=== PATIENT | male | born 1990 | race Two or more races ===

== ENCOUNTER 2017-05-06 04:18 | Emergency (ER) | payer SELFPAY ==
[~2017-05-06] VITALS: Ht 188 cm; Wt 68.6 kg
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
--- NOTE | 2017-05-06 04:25 | NUR ---
.IV ACCESS STARTED ON LAC #16G, SL
[2017-05-06] MEDS ORDERED: CEFAZOLIN 2 GM ONE (04:29)
[2017-05-06] MEDS ORDERED: MORPHINE SULFATE INJ 4 MG/ML DISP.SYRIN ONE ×2 (04:30→06:26)
[2017-05-06] MEDS ORDERED: MORPHINE SULFATE INJ 2 MG/ML DISP.SYRIN IV ONE ×2 (04:30→06:30)
[2017-05-06] MEDS ORDERED: IV NS 0.9% 500 ML IV ONE (04:30)
[2017-05-06] MEDS ORDERED: IV NS 0.9% 1,000 ML BAG IV ONE (04:30)
[2017-05-06] MEDS ORDERED: CEFAZOLIN 2 GM in IV D5W 100 ML IV ONE (04:30)
[2017-05-06] MEDS ORDERED: ONDANSETRON HCL/PF 4 MG/2 ML VIAL IVP ONE (04:30)
[2017-05-06] MEDS ORDERED: ONDANSETRON HCL/PF 4 MG/2 ML VIAL ONE (04:30)
[2017-05-06] MEDS ORDERED: IOHEXOL-350 100 ML VIAL IV ONE (04:30)
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
--- NOTE | 2017-05-06 05:00 | NUR ---
ALL ORDERED MEDS GIVEN
[2017-05-06 05:10] LABS: BASOPHILS % (AUTO) 0.3 % (0.0-2.0); EOSINOPHILS % (AUTO) 0.4 % (0.0-6.0); HEMATOCRIT 37 % (39-51); HEMOGLOBIN 12.4 g/dL (13.5-17.5); LYMPHOCYTES # (AUTO) 1.3 /CMM (0.8-4.8); MEAN CORPUSCULAR HEMOGLOBIN 30 PG (26.0-33.0); MEAN CORPUSCULAR HGB CONC 33 g/dl (31.0-36.0); MEAN CORPUSCULAR VOLUME 90 fL (80-96); MONOCYTES # (AUTO) 0.7 /CMM (0.1-1.30); MONOCYTES % (AUTO) 8.1 % (2.0-12.0); NEUTROPHILS # (AUTO) 6.2 /CMM (1.8-8.9); NEUTROPHILS % (AUTO) 75.2 % (43.0-81.0); PLATELET COUNT (AUTO) 165 /CMM (150-450); RDW COEFFICIENT OF VARIATION 14.5 (11.5-15.0); RED BLOOD CELL COUNT(AUTO) 4.14 MIL/uL (4.5-6.0); WHITE BLOOD COUNT (AUTO) 8.2 K/uL (4.3-11.0)
--- NOTE | 2017-05-06 05:22 | NUR ---
URINE SAMPLE COLLECTED
[2017-05-06 05:28] LABS: INR 0.99 (0.87-1.13); PROTHROMBIN TIME 10.3 SECS (9.5-12.7)
[2017-05-06 05:31] LABS: ALBUMIN 3.9 g/dL (3.4-5.0); BILIRUBIN,DIRECT 0.2 mg/dL (0.0-0.2); BILIRUBIN,TOTAL 1.1 mg/dL (0.2-1.0); CALCIUM, SERUM 8.9 mg/dL (8.5-10.1); CREATININE 0.9 mg/dL (0.6-1.3); POTASSIUM 3.9 mmol/L (3.5-5.1)
--- NOTE | 2017-05-06 05:45 | NUR ---
ALL ORDERED MEDS GIVEN
[2017-05-06 06:17] LABS: APPEARANCE,URINE CLEAR (CLEAR); BILIRUBIN,URINE NEGATIVE (NEGATIVE); BLOOD, URINE NEGATIVE Ery/uL (NEGATIVE); COLOR,URINE YELLOW (YELLOW); KETONES,URINE NEGATIVE (NEGATIVE); LEUKOCYTE ESTERASE ,URINE NEGATIVE (NEGATIVE); NITRITE, URINE NEGATIVE (NEGATIVE); PROTEIN,URINE NEGATIVE (NEGATIVE); UGLUCOSE NEGATIVE (NEGATIVE); UROBILINOGEN,URINE 0.2 EU/dL (0.2)
--- NOTE | 2017-05-06 06:31 | NUR ---
Pt C/O 02/28 PAIN. ADMINISTERED 4MG OF MORPHINE ON LAC#16G.
--- NOTE | 2017-05-06 06:45 | NUR ---
Patient discharged to home in stable condition. Written and verbal after care instructions given. Patient verbalizes understanding of instruction. Friend of pt came to bean picker pt. pt left on crutches. vs stable.
[2017-05-06 06:50] VITALS: BP 134/84
== END 2017-05-06 06:45 | disposition home or self-care (01) ==
LOC: ER 04:20
DX: S71.131A Puncture wound without foreign body, right thigh, initial encounter (principal); F17.200 Nicotine dependence, unspecified, uncomplicated; W34.09XA Accidental discharge from other specified firearms, initial encounter; Y93.01 Activity, walking, marching and hiking; Y92.413 State road as the place of occurrence of the external cause; Y99.8 Other external cause status
CPT/HCPCS: 36415; 75635; 80048; 80076; 81001; 85025; 85730; 86850; 93005; 96365; 96375; 96376; 99285; A4606; A6402; J0690 ×2; J2270 ×2; J2405; J7030; J7040; J7060 ×2; Q9967; Z7610; 81000-TC

== ENCOUNTER 2017-05-08 20:47 | Emergency (ER) | payer SELFPAY ==
[~2017-05-08] VITALS: Ht 188 cm; Wt 68.0 kg
[2017-05-08 20:47] VITALS: BP 123/87
== END 2017-05-08 23:15 | disposition home or self-care (01) ==
LOC: ER 20:49
DX: S71.101A Unspecified open wound, right thigh, initial encounter (principal); R20.2 Paresthesia of skin; M21.371 Foot drop, right foot; F17.200 Nicotine dependence, unspecified, uncomplicated; F12.10 Cannabis abuse, uncomplicated; W34.09XA Accidental discharge from other specified firearms, initial encounter; Y93.89 Activity, other specified; Y92.89 Other specified places as the place of occurrence of the external cause; Y99.8 Other external cause status
CPT/HCPCS: 29515; 99283; 99406; A4606; Z7610

== ENCOUNTER 2019-02-06 13:47 | Emergency (ER) | payer MEDICAID ==
[~2019-02-06] VITALS: Ht 188 cm; Wt 65.8 kg
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
[2019-02-06] MEDS ORDERED: LIDOCAINE 1%-EPI 1:100,000 20 ML VIAL ONE (16:22)
[2019-02-06] MEDS ORDERED: ACETAMINOPHEN ES 500 MG TABLET ONE (16:22)
--- NOTE | 2019-02-06 16:25 | NUR ---
JADE REBOLLAR AT BEDSIDE FOR EVAL
[2019-02-06] MEDS: LIDOCAINE 1%-EPI 1:100,000 20 ML VIAL TP ONE (16:29)
[2019-02-06] MEDS: ACETAMINOPHEN 325 MG TABLET PO ONE (16:29)
--- NOTE | 2019-02-06 16:33 | NUR ---
JADE REBOLLAR AT BEDSIDE FOR I&D
[2019-02-06] MEDS ORDERED: CEPHALEXIN MONOHYDRATE 500 MG CAPSULE PO ONE (16:56)
[2019-02-06] MEDS ORDERED: SULFAMETH/TRIMETH 800/160 MG 1 UDTAB TABLET ONE (16:57)
--- NOTE | 2019-02-06 17:00 | NUR ---
PATIENT PROVIDED W FOOD TRAY, TOLERATING PO WELL.
[2019-02-06] MEDS: CEPHALEXIN MONOHYDRATE 500 MG CAPSULE PO ONE (17:04)
[2019-02-06] MEDS: SULFAMETH/TRIMETH 800/160 MG 1 UDTAB TABLET PO ONE (17:04)
--- NOTE | 2019-02-06 17:16 | NUR ---
Patient given written and verbal discharge instructions. Patient verbalizes understanding of instructions. Patient is ambulatory with steady gait. Refuses offer of [facility] placement. Patient given list of available shelters in surrounding area. Patient discharge in proper clothing. nameband removed.
[2019-02-06 17:17] VITALS: BP 106/76
== END 2019-02-06 17:20 | disposition home or self-care (01) ==
LOC: ER 13:49
DX: L02.212 Cutaneous abscess of back [any part, except buttock and flank] (principal); F17.200 Nicotine dependence, unspecified, uncomplicated
CPT/HCPCS: 10060; 99284; A6403 ×2; A6407; J3490

== ENCOUNTER 2020-02-10 18:31 | Emergency (ER) | payer MEDICAID ==
[~2020-02-10] VITALS: Ht 182.9 cm; Wt 56.2 kg
--- NOTE | 2020-02-10 18:31 | NUR ---
PT BIB SELF C/O R SIDED ABDOMINAL PAIN, PT IS AAOX4, NOT IN RESPIRATORY DISTRESS, HOOKED TO DEATH CLEARANCE COORDINATOR, KEPT RESTED AND COMFORTABLE. WILL CONTINUE TO MONITOR.
--- NOTE | 2020-02-10 18:59 | NUR ---
URINE SPECIMEN COLLECTED AND SENT TO LAB.
--- NOTE | 2020-02-10 19:03 | NUR ---
REPORT GIVEN TO ELLEN NOLEN FOR [facility].
--- NOTE | 2020-02-10 19:19 | NUR ---
URINE SENT TO LAB, AWAITING PHLIBOTOMIST.
[2020-02-10 19:35] LABS: BASOPHILS % (AUTO) 0.4 % (0.0-2.0); EOSINOPHILS % (AUTO) 0.1 % (0.0-6.0); HEMATOCRIT 43 % (39-51); HEMOGLOBIN 14.1 g/dL (13.5-17.5); LYMPHOCYTES # (AUTO) 0.8 /CMM (0.8-4.8); LYMPHOCYTES % (AUTO) 9.1 % (20.0-44.0); MEAN CORPUSCULAR HGB CONC 33 g/dl (31.0-36.0); MEAN CORPUSCULAR VOLUME 93 fL (80-96); MONOCYTES # (AUTO) 0.5 /CMM (0.1-1.30); MONOCYTES % (AUTO) 6.2 % (2.0-12.0); NEUTROPHILS # (AUTO) 7.5 /CMM (1.8-8.9); NEUTROPHILS % (AUTO) 84.2 % (43.0-81.0); PLATELET COUNT (AUTO) 236 /CMM (150-450); RED BLOOD CELL COUNT(AUTO) 4.63 MIL/uL (4.5-6.0); WHITE BLOOD COUNT (AUTO) 8.8 K/uL (4.3-11.0)
[2020-02-10 19:45] LABS: POTASSIUM 3.6 mmol/L (3.5-5.1)
[2020-02-10 19:51] LABS: ALBUMIN 3.4 g/dL (3.4-5.0); BILIRUBIN,DIRECT 0.1 mg/dL (0.0-0.2); BILIRUBIN,TOTAL 0.4 mg/dL (0.2-1.0); TOTAL PROTEIN, SERUM 7.6 g/dL (6.4-8.2)
[2020-02-10 19:59] LABS: APPEARANCE,URINE Clear (CLEAR); BILIRUBIN,URINE SMALL (NEGATIVE); BLOOD, URINE Trace-intact Ery/uL (NEGATIVE); COLOR,URINE Dark (YELLOW); KETONES,URINE Trace (NEGATIVE); LEUKOCYTE ESTERASE ,URINE Moderate (NEGATIVE); NITRITE, URINE Negative (NEGATIVE); PROTEIN,URINE 30 mg/dl (NEGATIVE); UGLUCOSE Negative (NEGATIVE); UROBILINOGEN,URINE 0.2 EU/dL (0.2)
[2020-02-10 20:09] LABS: BACTERIA,URINE 1+ /HPF (None Seen); SQUAMOUS EPITHELIAL CELL,UR Few /HPF (None Seen); WBC,URINE 21-50 /HPF (0-3)
[2020-02-10] MEDS ORDERED: SULFAMETH/TRIMETH 800/160 MG 1 UDTAB TABLET ONE (21:28)
[2020-02-10] MEDS ORDERED: SULFAMETH/TRIMETH 800/160 MG 1 UDTAB TABLET PO ONE (21:30)
--- NOTE | 2020-02-10 21:31 | NUR ---
Patient discharged to home in stable condition. Written and verbal after care instructions given. Patient verbalizes understanding of instruction.
--- NOTE | 2020-02-10 21:35 | NUR ---
Patient discharged to home in stable condition. Written and verbal after care instructions given. Patient verbalizes understanding of instruction and RX. Pt ambulated with steady gait, vss.
[2020-02-10 21:36] VITALS: BP 132/76
== END 2020-02-10 21:37 | disposition home or self-care (01) ==
LOC: ER 18:39
DX: N30.90 Cystitis, unspecified without hematuria (principal); R00.0 Tachycardia, unspecified
CPT/HCPCS: 36415; 80048-TC; 80076-TC; 81000-TC; 83690-TC; 84484-TC; 85025-TC; 87086-TC

== ENCOUNTER 2020-07-09 19:11 | Emergency (ER) | payer MEDICAID ==
[~2020-07-09] VITALS: Ht 188 cm; Wt 74.8 kg
[2020-07-09 19:22] VITALS: BP 112/79
[2020-07-09] MEDS ORDERED: ACYC400T PO (19:40)
== END 2020-07-09 19:45 | disposition home or self-care (01) ==
LOC: ER 19:14
DX: A60.02 Herpesviral infection of other male genital organs (principal); F17.200 Nicotine dependence, unspecified, uncomplicated; Z79.899 Other long term (current) drug therapy

== ENCOUNTER 2020-08-28 19:09 | Emergency (ER) | payer MEDICAID ==
[~2020-08-28] VITALS: Ht 188 cm; Wt 72.6 kg
[~2020-08-28 19:09] MED LIST: ACYC400T PO
[2020-08-28 19:36] VITALS: BP 118/78
[2020-08-28] MEDS ORDERED: ACYC400T PO (19:48)
== END 2020-08-28 19:58 | disposition home or self-care (01) ==
LOC: ER 19:33
DX: B00.89 Other herpesviral infection (principal); J45.909 Unspecified asthma, uncomplicated; Z91.013 Allergy to seafood; Z79.899 Other long term (current) drug therapy

== ENCOUNTER → 2022-08-19 | Emergency (ER) | payer MEDICAID ==
[~2022-08-19] VITALS: Ht 188 cm; Wt 73.0 kg
[~2022-08-19] MED LIST changes: -ACYC400T PO; +ACYC400T19 PO; +HYDR453.3 TP; +PRED20TA PO
[2022-08-19 15:36] VITALS: BP 103/66
--- NOTE | 2022-08-19 16:17 | NUR ---
Patient discharged to home in stable condition. Written and verbal after care instructions given. Patient verbalizes understanding of instruction.
== END | disposition home or self-care (01) ==
LOC: ER 14:57
DX: R21 Rash and other nonspecific skin eruption (principal); F17.200 Nicotine dependence, unspecified, uncomplicated; Z79.899 Other long term (current) drug therapy; Z91.013 Allergy to seafood

== ENCOUNTER 2022-08-20 18:37 | Emergency (ER) | payer MEDICAID ==
[~2022-08-20] VITALS: Ht 188 cm; Wt 72.6 kg
[~2022-08-20 18:37] MED LIST changes: -PRED20TA PO
[2022-08-20 20:19] VITALS: BP 112/55
[2022-08-20] MEDS ORDERED: PRED20TA PO (20:34)
[2022-08-20] MEDS ORDERED: predniSONE 20 MG TABLET ONE (20:36)
--- NOTE | 2022-08-20 20:41 | NUR ---
Patient discharged to home in stable condition. Written and verbal after care instructions given. Patient verbalizes understanding of instruction.
[2022-08-20] MEDS ORDERED: predniSONE 20 MG TABLET PO ONE (21:00)
== END 2022-08-20 20:41 | disposition home or self-care (01) ==
LOC: ER 18:53
DX: R21 Rash and other nonspecific skin eruption (principal); F17.200 Nicotine dependence, unspecified, uncomplicated; Z91.013 Allergy to seafood; Z79.899 Other long term (current) drug therapy
CPT/HCPCS: 99283; J7512